=== PATIENT | female | born 1960 | race Caucasian/White ===

== ENCOUNTER 2020-07-02 21:02 | Emergency (ER) | payer MEDICAID ==
[~2020-07-02] VITALS: Ht 154.9 cm; Wt 81.0 kg
[2020-07-02 21:30] VITALS: BP 130/66
[2020-07-02] MEDS ORDERED: DEXAMETHASONE 4MG/ML 1ML VIAL IM ONE (21:45)
== END 2020-07-03 06:20 | disposition home or self-care (01) ==
LOC: ER 23:36
DX: U07.1 COVID-19 (principal); J39.1 Other abscess of pharynx; K08.89 Other specified disorders of teeth and supporting structures; Z88.8 Allergy status to other drugs, medicaments and biological substances; Z91.018 Allergy to other foods; Z88.0 Allergy status to penicillin; Z88.6 Allergy status to analgesic agent; J45.909 Unspecified asthma, uncomplicated; Z90.49 Acquired absence of other specified parts of digestive tract; Z98.890 Other specified postprocedural states
CPT/HCPCS: 99283; J1100; 99282